=== PATIENT | female | born 1975 | race Caucasian/White ===

== ENCOUNTER 2021-08-05 06:51 | Day surgery (SDC) | payer MEDICAID ==
[~2021-08-05] VITALS: Ht 162.6 cm; Wt 86.2 kg
[2021-08-05] MEDS ORDERED: MEPERIDINE 100 MG INJ. 100 MG/ML VIAL ONE (06:57)
[2021-08-05] MEDS ORDERED: SIMETHICONE 40 MG/0.6 ML ML ONE (06:57)
[2021-08-05] MEDS ORDERED: MIDAZOLAM HCL 5 MG/5 ML VIAL ONE (06:58)
[2021-08-05 07:04] LABS: HCG,QUAL RESULT NEGATIVE (NEGATIVE)
[2021-08-05 12:51] VITALS: BP_SYST 124
== END 2021-08-05 10:10 | disposition home or self-care (01) ==
LOC: SDS 06:51 → SMU 06:52 → SDS 10:10
PROVIDERS: ATTEND Internal Medicine Gastroenterology
DX: Z12.11 Encounter for screening for malignant neoplasm of colon (principal); D12.5 Benign neoplasm of sigmoid colon; K57.30 Diverticulosis of large intestine without perforation or abscess without bleeding; K64.8 Other hemorrhoids; Z79.899 Other long term (current) drug therapy; Z20.822 Contact with and (suspected) exposure to COVID-19
CPT/HCPCS: 36415; 45385; 84703; 87426; 88305; 99152; 99153; G0378; J2175; J2250